=== PATIENT | female | born 2000 | race Asian ===

== ENCOUNTER 2024-04-30 17:28 | Observation (INO) ==
[2024-04-30 18:25] LABS: Appearance Urine Cloudy (Clear); Bacteria Urine Automated None Seen (None Seen); Bilirubin Urine Negative (Negative); Blood Urine 2+ (Negative); Color Urine Yellow; Epithelial Cell Urine Auto 0-2 /hpf (0-2); Glucose Urine UA 3+ (Negative); Ketones Urine 3+ (Negative); Leukocyte Esterase Urine 2+ (Negative); Nitrite Urine Negative (Negative); Protein Urine 1+ (Negative); Specific Gravity Urine 1.017 (1.000-1.030); Urobilinogen Urine Negative (Negative); WBC Urine Automated >50 /hpf (0-5)
[2024-04-30 18:27] LABS: Basophils # (auto) 0.04 K/uL (0.00-0.20); Basophils % (auto) 0.3 %; Eosinophils # (auto) 0.01 K/uL (0.00-0.50); Eosinophils % (auto) 0.1 %; Hematocrit (blood only) 42.7 % (37.0-47.0); Hemoglobin 14.4 g/dl (12.0-16.0); Immature Granulocytes # (auto) 0.08 K/uL (0.01-0.20); Immature Granulocytes % (auto) 0.5 %; Lymphocytes # (auto) 1.62 K/uL (1.20-3.40); Lymphocytes % (auto) 10.2 %; Mean Corpuscular Hgb Conc 33.7 g/dL (32.0-36.0); Mean Corpuscular Volume 86.1 fL (80.0-100.0); Mean Platelet Volume 9.5 fL (9.4-12.4); Monocytes # (auto) 0.73 K/uL (0.11-0.59); Monocytes % (auto) 4.6 %; Neutrophils # (auto) 13.44 K/uL (1.40-6.50); Neutrophils % (auto) 84.3 %; Platelet Count 232 K/uL (130-400); RDW Coefficient of Variation 12.3 % (11.5-14.5); RDW Standard Deviation 38.5 fL (36.4-46.3); Red Blood Count 4.96 M/uL (4.20-5.40); White Blood Count 15.92 K/ul (4.8-10.8)
[2024-04-30 18:43] LABS: Albumin Globulin Ratio 1.4 (0.9-2); Albumin Level 4.4 gm/dl (3.4-5.0); BUN Creatinine Ratio 13.5 (10-20); Bilirubin,Total 1.1 mg/dl (0.2-1.0); Calcium 9.4 mg/dl (8.6-10.3); Creatinine Clr Calc Pharmacy 134.8 ml/min; Est GFR (African American) 133.3 ml/min; Globulin 3.2 gm/dl (2.5-4.0); Potassium 3.7 mmol/L (3.5-5.1); Total Protein 7.6 gm/dl (6.0-8.3)
[2024-04-30] MEDS: SODIUM CHLORIDE 0.9% 1,000 ML IV SCH ×2 (18:51→23:15)
--- NOTE | 2024-04-30 18:59 | Emergency Department Note ---
Impression & Plan Pyelonephritis, Diabetes mellitus, new onset, Urinary tract infection, Hyperglycemia ED Provider Note NAME: RAINA WOODSON AGE: 23 SEX: F : 2000 ARRIVES VIA: Walk-In INFORMANT: Patient ED PROVIDER(S): Vinh Warner DO CHIEF COMPLAINT: Elevated blood sugar HPI: Patient is a 21-year-old female who presents to the ER with symptoms that started about 3 to 4 days ago. She had dysuria, urgency, and frequency. It has improved but still has the symptoms. She also has left lower quadrant pain radiating to the back. She had her blood sugar checked at the office and was elevated and consequently she was referred over. She denies any headache or change in vision. No chest pain or shortness of breath. No nausea, vomiting, or diarrhea. No other exacerbating or remitting factors. ADDITIONAL HISTORY OBTAINED: Per HPI Chronic Medical/Social Conditions Affecting Care: Per HPI PAST MEDICAL HISTORY:See Below PAST SURGICAL HISTORY:See Below FAMILY HISTORY:See Below SOCIAL HISTORY:See Below HOME MEDICATIONS:See Below ALLERGIES:See Below VITALS:See Below PHYSICAL EXAMINATION: GENERAL: Sitting up in bed, alert, well appearing, well nourished, no distress, non-toxic EYE EXAM: normal conjunctiva. PERRL and EOM's grossly intact. OROPHARYNX: no exudate, no erythema, lips, buccal mucosa, and tongue normal and mucous membranes are moist NECK: supple, no nuchal rigidity, no adenopathy, non-tender LUNGS: Clear to auscultation. Normal chest wall mechanics HEART: no murmurs, S1 normal and S2 normal ABDOMEN: abdomen soft, non-tender, normo-active bowel sounds, no masses, no rebound or guarding. BACK: Back is symmetrical on inspection and there is no deformity, no midline tenderness, no CVA tenderness. SKIN: no rashes and no bruising UPPER EXTREMITIES: upper extremities are grossly normal. LOWER EXTREMITIES: No pitting edema. NEURO EXAM: Normal sensorium, cranial nerves II-XII grossly intact, normal speech, no gross weakness of arms, no gross weakness of legs. MEDICAL DECISION MAKING: Patient is a 23-year-old female who presents the ER for the above-stated complaint. IV was established blood work was obtained. External records were reviewed from [facility] which showed an elevated blood sugar in the 200s. Labs show leukocytosis of 15,000. No significant anemia. BMP with a glucose of 280. LFTs bilirubin is unremarkable. UA does suggest a UTI. Patient was given 2 L IV fluids as well as IV Rocephin. was negative. A1c was elevated at 9. Blood sugars trend down to the low 200s. Discussed case with the hospitalist for further evaluation management treatment due to the new onset diabetes in combination with UTI. CT abdomen pelvis showed no acute pathology. Consults/Care Managements Discussions: Per [facility] Triage Nursing notes reviewed. Limited review of prior medical records performed Vital Signs: reviewed and remarkable for no significant abnormalities Differential diagnosis: Differential diagnoses includes but is not limited to gastritis, peptic ulcer disease, GERD, gallbladder disease, pancreatitis, small bowel obstruction, appendicitis, diverticulitis, hernia, urinary tract infection, torsion, /ectopic (if female), perforation, trauma, infectious. ER treatment provided: See below Diagnostics interpreted by me include EKG and cardiac monitoring as listed below: -Cardiac Monitoring: An order was placed for continuous cardiac monitoring. The monitor shows a rate of 90 with sinus rhythm. -ECG: none -Laboratory studies:Interpreted by me as stated above in MDM and shown below. Imaging studies: Xrays: As interpreted by me:none CTs show: CT abdomen pelvis per my preliminary interpretation showed no obvious bowel obstruction CT abdomen pelvis shows pyelonephritis Procedures:none Critical Care: None Past Med/Surg History Problem List (Updated 04/30/24 @ 21:42 by Vinh Warner DO) Pyelonephritis (Acute) Diabetes mellitus, new onset (Acute) Hyperglycemia (Acute) Urinary tract infection (Acute) Diabetes mellitus Social History Smoking Status: Current every day smoker Tobacco Type: E-cigarettes / Vaping Preferred Language: Hungarian Feels Safe at Home: Yes Allergies Allergies Allergy/AdvReac Type Severity Reaction Status Date / Time No Known Allergies Allergy Unverified 04/30/24 20:22 Home Meds Home Medications Medication Instructions Recorded Confirmed ibuprofen 200 mg tablet (Advil) 200 mg PO BID PRN Pain 04/30/24 04/30/24 levonorgestrel 1.5 mg tablet (Plan 0 mg PO DIRECTED PRN .The day 04/30/24 04/30/24 B One-Step) after Results & Data (ED) Vital Signs Vital Signs - 24 hr 04/30/24 17:40 04/30/24 19:29 04/30/24 21:00 Temperature 36.6 C Temperature Source Temporal Artery Scan Pulse Rate 94 H Pulse Rate [Finger] 92 H 89 Pulse Rhythm [Finger] Regular Regular Respiratory Rate 16 18 22 Respiratory Effort / Characteristics Non-Labored Spontaneous Non-Labored Spontaneous Non-Labored Spontaneous Respiratory Depth Normal Normal Normal Respiratory Pattern Regular Regular Blood Pressure 101/71 Blood Pressure [Right Arm] 114/67 121/74 Blood Pressure Mean 81 Blood Pressure Mean [Right Arm] 82 89 Pulse Oximetry 97 100 100 Oxygen Delivery Method Room Air Room Air Room Air Sepsis Recent Fever Within 48 Hours No Sepsis New/Unexplained Change in Mental Status No Sepsis Action Taken by Nursing No Action Required Laboratory Data 04/30/24 18:05 04/30/24 18:05 Lab Results 04/30/24 04/30/24 04/30/24 Range/Units 18:00 18:04 18:05 WBC 15.92 H (4.8-10.8) K/ul RBC 4.96 (4.20-5.40) M/uL Hgb 14.4 (12.0-16.0) g/dl Hct 42.7 (37.0-47.0) % MCV 86.1 (80.0-100.0) fL MCH 29.0 (25.0-34.0) pg MCHC 33.7 (32.0-36.0) g/dL RDW Std Deviation 38.5 (36.4-46.3) fL RDW Coeff of Santos 12.3 (11.5-14.5) % Plt Count 232 (130-400) K/uL MPV 9.5 (9.4-12.4) fL Immature Gran % (Auto) 0.5 % Neut % (Auto) 84.3 % Lymph % (Auto) 10.2 % Grayson % (Auto) 4.6 % Eos % (Auto) 0.1 % Baso % (Auto) 0.3 % Neut # (Auto) 13.44 H (1.40-6.50) K/uL Lymph # (Auto) 1.62 (1.20-3.40) K/uL Grayson # (Auto) 0.73 H (0.11-0.59) K/uL Eos # (Auto) 0.01 (0.00-0.50) K/uL Baso # (Auto) 0.04 (0.00-0.20) K/uL Immature Gran # (Auto) 0.08 (0.01-0.20) K/uL VBG pH (7.36-7.41) VBG pCO2 (38-50) mmHg VBG pO2 mmHg VBG HCO3 mmol/L VBG O2 Saturation % VBG Base Excess mEq/L Sodium 132 L (136-145) mmol/L Potassium 3.7 (3.5-5.1) mmol/L Chloride 97 L (98-107) mmol/L Carbon Dioxide 27 (21-32) mmol/L Anion Gap 8 (3-11) BUN 10 (6-23) mg/dl Creatinine 0.74 (0.6-1.2) mg/dl Est Cr Clr Drug Dosing 134.8 ml/min Est GFR ( Amer) 133.3 ml/min Est GFR (Non-Af Amer) 115.0 ml/min BUN/Creatinine Ratio 13.5 (10-20) Glucose 282 H (70-99(Fasting)) mg/dl POC Glucose (70-99) mg/dl Estimat Average Glucose 229 mg/dl Hemoglobin A1c 9.6 H (4.5-5.6) % Calcium 9.4 (8.6-10.3) mg/dl Total Bilirubin 1.1 H (0.2-1.0) mg/dl AST 14 (13-39) U/L ALT 11 (7-52) U/L Alkaline Phosphatase 84 (34-104) U/L Total Protein 7.6 (6.0-8.3) gm/dl Albumin 4.4 (3.4-5.0) gm/dl Globulin 3.2 (2.5-4.0) gm/dl Albumin/Globulin Ratio 1.4 (0.9-2) Urine Color Yellow Urine Appearance Cloudy A (Clear) Urine pH 6.0 (4.5-7.5) Ur Specific [place] 1.017 (1.000-1.030) Urine Protein 1+ H (Negative) Urine Glucose (UA) 3+ H (Negative) Urine Ketones 3+ H (Negative) Urine Blood 2+ H (Negative) Urine Nitrite Negative (Negative) Urine Bilirubin Negative (Negative) Urine Urobilinogen Negative (Negative) Ur Leukocyte Esterase 2+ H (Negative) Urine WBC (Auto) >50 H (0-5) /hpf Urine RBC (Auto) 6-10 H (0-2) /hpf U Hyaline Cast (Auto) 3-5 H (0-2) /lpf U Epithel Cells (Auto) 0-2 (0-2) /hpf Urine Bacteria (Auto) None Seen (None Seen) POC Ur Test NEG (NEG) 04/30/24 04/30/24 Range/Units 18:49 19:32 WBC (4.8-10.8) K/ul RBC (4.20-5.40) M/uL Hgb (12.0-16.0) g/dl Hct (37.0-47.0) % MCV (80.0-100.0) fL MCH (25.0-34.0) pg MCHC (32.0-36.0) g/dL RDW Std Deviation (36.4-46.3) fL RDW Coeff of Santos (11.5-14.5) % Plt Count (130-400) K/uL MPV (9.4-12.4) fL Immature Gran % (Auto) % Neut % (Auto) % Lymph % (Auto) % Grayson % (Auto) % Eos % (Auto) % Baso % (Auto) % Neut # (Auto) (1.40-6.50) K/uL Lymph # (Auto) (1.20-3.40) K/uL Grayson # (Auto) (0.11-0.59) K/uL Eos # (Auto) (0.00-0.50) K/uL Baso # (Auto) (0.00-0.20) K/uL Immature Gran # (Auto) (0.01-0.20) K/uL VBG pH 7.38 (7.36-7.41) VBG pCO2 46 (38-50) mmHg VBG pO2 25 mmHg VBG HCO3 27 mmol/L VBG O2 Saturation < 60.0 % VBG Base Excess 1.5 mEq/L Sodium (136-145) mmol/L Potassium (3.5-5.1) mmol/L Chloride (98-107) mmol/L Carbon Dioxide (21-32) mmol/L Anion Gap (3-11) BUN (6-23) mg/dl Creatinine (0.6-1.2) mg/dl Est Cr Clr Drug Dosing ml/min Est GFR ( Amer) ml/min Est GFR (Non-Af Amer) ml/min BUN/Creatinine Ratio (10-20) Glucose (70-99(Fasting)) mg/dl POC Glucose 229 H (70-99) mg/dl Estimat Average Glucose mg/dl Hemoglobin A1c (4.5-5.6) % Calcium (8.6-10.3) mg/dl Total Bilirubin (0.2-1.0) mg/dl AST (13-39) U/L ALT (7-52) U/L Alkaline Phosphatase (34-104) U/L Total Protein (6.0-8.3) gm/dl Albumin (3.4-5.0) gm/dl Globulin (2.5-4.0) gm/dl Albumin/Globulin Ratio (0.9-2) Urine Color Urine Appearance (Clear) Urine pH (4.5-7.5) Ur Specific [place] (1.000-1.030) Urine Protein (Negative) Urine Glucose (UA) (Negative) Urine Ketones (Negative) Urine Blood (Negative) Urine Nitrite (Negative) Urine Bilirubin (Negative) Urine Urobilinogen (Negative) Ur Leukocyte Esterase (Negative) Urine WBC (Auto) (0-5) /hpf Urine RBC (Auto) (0-2) /hpf U Hyaline Cast (Auto) (0-2) /lpf U Epithel Cells (Auto) (0-2) /hpf Urine Bacteria (Auto) (None Seen) POC Ur Test (NEG) Administered Medications Discontinued Medications Sodium Chloride (Nss) 1,000 mls @ 999 mls/hr IV .Q1H1M DEYA Stop: 04/30/24 20:45 Last Infusion: 04/30/24 21:10 Dose: Infused Documented By: Admin: 04/30/24 20:04 Dose: 999 mls/hr Documented By: Infusion: 04/30/24 19:52 Dose: Infused Documented By: Admin: 04/30/24 18:51 Dose: 999 mls/hr Documented By: KARI Ceftriaxone Sodium (Rocephin) 2,000 mg in 50 mls @ 100 mls/hr IV NOW STA Stop: 04/30/24 20:11 Last Infusion: 04/30/24 21:09 Dose: Infused Documented By: Admin: 04/30/24 20:04 Dose: 100 mls/hr Documented By: KARI Ioversol (Optiray 320 100ml) 92 ml IV ONCE ONE Stop: 04/30/24 19:08 Last Admin: 04/30/24 19:08 Dose: 92 ml Documented By: MARLY Imaging Data Radiologist's Impression: Abdomen/Pelvis CT 04/30/24 18:43 Exam(s): CT ABDOMEN + PELVIS With Contrast IV Amt: 92ml EXAM: CT Abdomen and Pelvis With Intravenous Contrast CLINICAL HISTORY: Reason for exam: llq abd pain going to back. TECHNIQUE: Axial computed tomography images of the abdomen and pelvis with intravenous contrast. CTDI is 17.08 mGy and DLP is 969.21 mGy-cm. Automated exposure control was utilized for the study. A dose lowering technique was utilized adhering to the principles of ALARA. CONTRAST: Patient received 92ml of IV contrast COMPARISON: No relevant prior studies available. FINDINGS: Lung bases: Unremarkable. No mass. No consolidation. Pleural space: Trace bilateral pleural effusions measuring less than 1 cm layering posteriorly. ABDOMEN: Liver: The liver is enlarged measuring 20 cm craniocaudad. No focal liver lesion is seen. Gallbladder and bile ducts: Unremarkable. No calcified stones. No ductal dilation. Pancreas: Unremarkable. No mass. No ductal dilation. Spleen: Unremarkable. No splenomegaly. Adrenals: Unremarkable. No mass. Kidneys and ureters: There is slightly decreased enhancement of approximately one third of the left kidney and slight enhancement of the wall of the proximal ureter consistent with ascending urinary tract infection and pyelonephritis. No hydronephrosis. Stomach and bowel: Unremarkable. No obstruction. No mucosal thickening. PELVIS: Appendix: The appendix is normal. Bowel loops are nondilated. No acute inflammatory changes are seen involving the bowel. Bladder: There is circumferential urinary bladder wall thickening indicate cystitis. Reproductive: Unremarkable as visualized. ABDOMEN and PELVIS: Intraperitoneal space: Unremarkable. No free air. No significant fluid collection. Bones/joints: No acute fracture. No dislocation. Soft tissues: Unremarkable. Vasculature: Unremarkable. No abdominal aortic aneurysm. Lymph nodes: Unremarkable. No enlarged lymph nodes. IMPRESSION: 1. There is circumferential urinary bladder wall thickening indicate cystitis. 2. There is slightly decreased enhancement of approximately one third of the left kidney with perinephric edema and slight enhancement of the wall of the proximal ureter consistent with ascending urinary tract infection and pyelonephritis. 3. The appendix is normal. Bowel loops are nondilated. No acute inflammatory changes are seen involving the bowel. Electronically signed by: Cortes Loza MD 04/30/24 21:20 PM Discharge Plan Visit Data Chief Complaint: Urinary Symptoms ED Provider: Vinh Warner Discharge Problem: Pyelonephritis, Diabetes mellitus, new onset, Urinary tract infection, Hyperglycemia Forms Stand Alone Forms: [place] Prescriptions Prescriptions: No Action ibuprofen [Advil] 200 mg Tablet 200 mg PO BID PRN (Reason: Pain) levonorgestrel [Plan B One-Step] 1.5 mg Tablet 0 mg PO DIRECTED PRN (Reason: .The day after) Referrals Referrals: PCP,NO [Physician] - Discharge Problem: Urinary tract infection Qualifiers: Urinary tract infection type: acute cystitis Hematuria presence: with hematuria Qualified Code(s): N30.01 - Acute cystitis with hematuria
[2024-04-30 19:00] LABS: Base Excess VBG 1.5 mEq/L; HCO3 VBG 27 mmol/L; Oxygen Saturation VBG < 60.0 %; PCO2 VBG 46 mmHg (38-50); PO2 VBG 25 mmHg; pH VBG 7.38 (7.36-7.41)
[2024-04-30] MEDS: OPTIRAY 320 100ml IV ONE (19:08)
[2024-04-30 19:36] LABS: Estimated Average Glucose 229 mg/dl; Hemoglobin A1C 9.6 % (4.5-5.6)
[2024-04-30] MEDS: cefTRIAXone SODIUM 2,000 MG/50 ML BAG IV STA (20:04)
--- NOTE | 2024-04-30 20:33 | History & Physical Report ---
Date of Service April 30, 2024 Assessment & Plan (1) Hyperglycemia: (2) Pyelonephritis: (3) Cystitis: (4) Diabetes mellitus, new onset: Plan Is a 23-year-old female with no significant past medical history who was sent to ED from [facility] clinic due to finding of hyperglycemia during evaluation of left lower quadrant pain and urinary symptoms. Hyperglycemia //New diagnosis of Diabetes Mellitus -Patient with no personal history of diabetes but has family history of diabetes type 2 in mom and maternal aunt -Fasting blood sugar at home has ranged between 90 and 120, but patient has not measured blood sugar and other times of the day -Blood sugar on admission labs showing level of 282, and hemoglobin A1c of 9.6 -Consider possible that patient had an undiagnosed diabetes mellitus that was impacted/made worse by current UTI -S/p 2 L bolus of normal saline. Will continue maintenance IVF after this for fluid resuscitation -Will begin insulin regimen as well as SSI -harm reduction worker consulted -Blood sugar checks every 4 hours and then before meals -Will admit to telemetry for observation -Monitor a.m. CMP and CBC -Patient without outpatient PCP. Encouraged to establish care with a PCP for continued monitoring of blood sugar and regular health maintenance. (L) Pyelonephritis & Cystitis -Patient with symptoms of dysuria, shivering, and fever sensation since Saturday of this week -UA with findings suggestive of UTI -Urine culture pending -Blood cultures pending -CTAP showing findings consistent with left-sided pyelonephritis and cystitis -Will continue ceftriaxone and may consider switching to appropriate p.o. al ternative after discharge to complete a total of 10 days of antibiotic therapy Hyponatremia -Metabolic panel showing hyponatremia of 132 that corrects to 135 accounting for hyperglycemia -Monitor a.m. CMP Dispo: Admit to PCU/telemetry for observation Fluids: NSS @ 125 ml/hr Diet: DM2 Pain Control: none VTE ppx: patient able to ambulate Code Status: Full History of Present Illness Chief Complaint: Hyperglycemia Primary Care Provider: NO PCP 23-year-old female patient with no significant past medical history who was sent to ED from [facility] clinic due to finding of hyperglycemia with blood sugar above 250. Prior to this, patient had been experiencing left lower quadrant pain with some radiation to the back since Saturday of this week, as well as dysuria, shakes, and feverish sensation. Initially she thought this was related to a UTI, and associated her abdominal and back pain due to this. However, since her pain was getting progressively worse up until yesterday, she went to [facility] clinic to be evaluated where they found UTI and hyperglycemia as mentioned above. Patient has no personal history of diabetes, but does have family history with her mom and maternal aunt having type 2 diabetes. Her mom had given her a glucometer to check her blood sugar due to concern for also developing diabetes as this has run in the family, and patient has only measured her blood sugar in the morning with usual range between 90 and 120. No other blood sugar checks during the day. Patient endorses having a pretty active lifestyle going to the gym and exercising, as well as maintaining an adequate diet. ED Course: Patient giving 2 L bolus of normal saline, and was started on ceftriaxone for management of UTI Labs/Imaging: CBC with leukocytosis of 15.9 with neutrophilic predominance, hemoglobin 14.4 and platelets adequate at 232. Blood gas without acidosis (pH of 7.38) and pCO2 46. Metabolic panel showing hyponatremia of 132 and no other electrolyte abnormality, renal markers within reference range, blood glucose of 282. Hemoglobin A1c of 9.6. UA showing proteinuria of +1, glucosuria of 3+, urine ketones of 3+, leukocyte esterase without nitrites and no bacteria. CTAP showing findings consistent with left sided pyelonephritis and cystitis. Medical History: No past medical history Medications: No current medications Surgical History: No previous surgeries Family history: Mother and maternal aunt with history of type 2 diabetes, paternal history unremarkable Allergies: No known drug allergies Social History: Non-smoker, occasional alcohol use, no substance use Code Status: Full Allergies Allergy/AdvReac Type Severity Reaction Status Date / Time No Known Allergies Allergy Unverified 04/30/24 20:22 Home Medications Medication Instructions Recorded Confirmed Type ibuprofen 200 mg tablet (Advil) 200 mg PO BID PRN Pain 04/30/24 04/30/24 History levonorgestrel 1.5 mg tablet (Plan 0 mg PO DIRECTED PRN .The day 04/30/24 04/30/24 History B One-Step) after Past Med/Surg History Problem List (Updated 04/30/24 @ 22:59 by Keisha Eldridge MD) Cystitis Pyelonephritis (Acute) Diabetes mellitus, new onset (Acute) Hyperglycemia (Acute) Urinary tract infection (Acute) Diabetes mellitus Social History Smoking Status: Current every day smoker Tobacco Type: E-cigarettes / Vaping Hx Alcohol Use: Yes Alcohol type: hard liquor Hx Substance Use: No Preferred Language: Uzbek Communication Ability: Effective Distributor Sales Manager Required: No Beliefs That Will Affect Care: None Current Living Situation: Alone Other Information That Helps Us Care for You: No Feels Safe at Home: Yes Safety Concerns: Feels Safe At This Time Assistive Devices: Contacts Review of Systems Review of Systems: As per HPI Physical Exam Physical Exam: GENERAL: AAOx3, calm, afebrile, NAD HEAD: NC, AT EYES: EOM intact, ROBERTA, non-injected conjunctiva THROAT: Normal to visual inspection CHEST: Symmetric rise with respirations CARDIO: Regular rate and rhythm, no rubs murmurs or gallops appreciated PULMONARY: Clear to auscultation bilaterally, normal respiratory effort, no respiratory distress GI: Soft, nondistended, tenderness on palpation of left upper and lower quadrant as well as suprapubic region, no tenderness elicited on palpation of other quadrants : No Schmitt EXTREMITIES: No swelling or calf tenderness in bilateral lower extremities SKIN: No rashes or lesions appreciated Results & Data Results & Data Vital Signs (Past 12 Hours) Vital Signs Temp Pulse Pulse Resp BP BP Pulse Ox 04/30/24 19:29 92 H 18 114/67 100 04/30/24 17:40 36.6 C 94 H 16 101/71 97 O2 Del Method 04/30/24 19:29 Room Air 04/30/24 17:40 Room Air Supervising Physician Co-Signing Physician Notes Attending addendum: I have physically seen this patient, have supervised the medical residents activities, and agree with the H&P unless as otherwise noted. Assessment and Plan: New onset diabetes mellitus with hyperglycemia- Patient had been sent to the emergency department due to elevated blood glucose in the outpatient setting Glucose 282 on admission, with hemoglobin A1c 9.6 No previous personal history of diabetes Status post 2 L normal saline bolus in the ED Continue IV fluids NSS at 125 MLS per hour Placed on Accu-Cheks with SSI overnight Consult diabetic education Patient will need to establish with outpatient PCP She has been checking morning glucoses at home due to family history of diabetes type 2 Check CBC with differential and renal function panel in the a.m. Cystitis/ureteritis/left-sided pyelonephritis- Follow urine culture and sensitivity Follow blood culture and sensitivity Empiric ceftriaxone Resident Activity Tracking Resident Involvement: Resident Care Provided Care Provided: Adult [facility]
--- NOTE | 2024-04-30 21:21 | CT Scan Report ---
Exam(s): CT ABDOMEN + PELVIS With Contrast IV Amt: 92ml EXAM: CT Abdomen and Pelvis With Intravenous Contrast CLINICAL HISTORY: Reason for exam: llq abd pain going to back. TECHNIQUE: Axial computed tomography images of the abdomen and pelvis with intravenous contrast. CTDI is 17.08 mGy and DLP is 969.21 mGy-cm. Automated exposure control was utilized for the study. A dose lowering technique was utilized adhering to the principles of ALARA. CONTRAST: Patient received 92ml of IV contrast COMPARISON: No relevant prior studies available. FINDINGS: Lung bases: Unremarkable. No mass. No consolidation. Pleural space: Trace bilateral pleural effusions measuring less than 1 cm layering posteriorly. ABDOMEN: Liver: The liver is enlarged measuring 20 cm craniocaudad. No focal liver lesion is seen. Gallbladder and bile ducts: Unremarkable. No calcified stones. No ductal dilation. Pancreas: Unremarkable. No mass. No ductal dilation. Spleen: Unremarkable. No splenomegaly. Adrenals: Unremarkable. No mass. Kidneys and ureters: There is slightly decreased enhancement of approximately one third of the left kidney and slight enhancement of the wall of the proximal ureter consistent with ascending urinary tract infection and pyelonephritis. No hydronephrosis. Stomach and bowel: Unremarkable. No obstruction. No mucosal thickening. PELVIS: Appendix: The appendix is normal. Bowel loops are nondilated. No acute inflammatory changes are seen involving the bowel. Bladder: There is circumferential urinary bladder wall thickening indicate cystitis. Reproductive: Unremarkable as visualized. ABDOMEN and PELVIS: Intraperitoneal space: Unremarkable. No free air. No significant fluid collection. Bones/joints: No acute fracture. No dislocation. Soft tissues: Unremarkable. Vasculature: Unremarkable. No abdominal aortic aneurysm. Lymph nodes: Unremarkable. No enlarged lymph nodes. IMPRESSION: 1. There is circumferential urinary bladder wall thickening indicate cystitis. 2. There is slightly decreased enhancement of approximately one third of the left kidney with perinephric edema and slight enhancement of the wall of the proximal ureter consistent with ascending urinary tract infection and pyelonephritis. 3. The appendix is normal. Bowel loops are nondilated. No acute inflammatory changes are seen involving the bowel. Electronically signed by: Cortes Loza MD 04/30/24 21:20 PM
[2024-04-30] MEDS ORDERED: CARBOHYDRATES FOR HYPOGLYCEMIA PO PRN (22:18)
[2024-04-30] MEDS ORDERED: GLUCAGON FOR INJ 1 MG VIAL SQ PRN (22:18)
[2024-04-30] MEDS ORDERED: DEXTROSE 50% 50 ML SYRINGE IV PRN (22:18)
[2024-04-30] MEDS ORDERED: GLUCOSE 10 TAB/TUBE PO PRN (22:18)
[2024-04-30] MEDS ORDERED: GLUCOSE 40% GEL 15 GM TUBE PO PRN (22:18)
[2024-04-30] MEDS: LANTUS PER UNIT CHARGE SQ SCH (23:05)
[2024-04-30] MEDS: INSULIN ASPART PER UNIT CHARGE SC SCH (23:05)
[2024-04-30] MEDS: ONDANSETRON INJ 2 MG/ML 2 ML VIAL IV ONE (23:17)
[2024-05-01] MEDS: FAMOTIDINE 20 MG TAB PO ONE
--- NOTE | 2024-05-01 02:29 | Billing Data ---
Date of Service May 01, 2024 Coding Level of Care Code 97994 INT INP/OBS CARE
[2024-05-01 07:10] LABS: Basophils # (auto) 0.03 K/uL (0.00-0.20); Basophils % (auto) 0.2 %; Eosinophils # (auto) 0.02 K/uL (0.00-0.50); Eosinophils % (auto) 0.1 %; Hematocrit (blood only) 33.5 % (37.0-47.0); Hemoglobin 11.3 g/dl (12.0-16.0); Immature Granulocytes # (auto) 0.08 K/uL (0.01-0.20); Immature Granulocytes % (auto) 0.5 %; Lymphocytes # (auto) 1.22 K/uL (1.20-3.40); Lymphocytes % (auto) 7.8 %; Mean Corpuscular Hemoglobin 28.9 pg (25.0-34.0); Mean Corpuscular Hgb Conc 33.7 g/dL (32.0-36.0); Mean Corpuscular Volume 85.7 fL (80.0-100.0); Mean Platelet Volume 9.9 fL (9.4-12.4); Monocytes # (auto) 0.91 K/uL (0.11-0.59); Monocytes % (auto) 5.8 %; Neutrophils # (auto) 13.44 K/uL (1.40-6.50); Neutrophils % (auto) 85.6 %; Platelet Count 181 K/uL (130-400); RDW Coefficient of Variation 12.4 % (11.5-14.5); RDW Standard Deviation 38.6 fL (36.4-46.3); Red Blood Count 3.91 M/uL (4.20-5.40)
[2024-05-01 07:35] LABS: Albumin Globulin Ratio 1.2 (0.9-2); Albumin Level 3.2 gm/dl (3.4-5.0); BUN Creatinine Ratio 11.5 (10-20); Bilirubin,Total 0.8 mg/dl (0.2-1.0); Calcium 8.2 mg/dl (8.6-10.3); Creatinine Clr Calc Pharmacy 166.8 ml/min; Est GFR (African American) 149.1 ml/min; Est GFR (Non-African American) 128.7 ml/min; Globulin 2.6 gm/dl (2.5-4.0); Potassium 3.7 mmol/L (3.5-5.1); Total Protein 5.8 gm/dl (6.0-8.3)
[2024-05-01] MEDS: PANTOprazole 40 MG in SYRINGE 0 ML IV SCH (08:41)
[2024-05-01] MEDS: FAMOTIDINE 20 MG TAB PO SCH (08:41)
--- NOTE | 2024-05-01 11:01 | Electrocardiogram Report ---
Test Reason : Blood Pressure : / mmHG Vent. Rate : 103 BPM Atrial Rate : 103 BPM P-R Int : 136 ms QRS Dur : 130 ms QT Int : 384 ms P-R-T Axes : 055 093 030 degrees QTc Int : 503 ms Sinus tachycardia Right bundle branch block Abnormal ECG No previous ECGs available Confirmed by Abimael Reagan ([id number]) on 05/01/2024 11:01:07 AM Referred By: REFERRED SELF Confirmed By:Abimael Reagan
[2024-05-01] MEDS: ACETAMINOPHEN 325 MG TAB PO PRN (14:53)
--- NOTE | 2024-05-01 15:06 | Hospitalist Progress Note ---
Date of Service May 01, 2024 Assessment & Plan (1) Pyelonephritis: Plan: A 23-year-old female with no significant past medical history who was sent to ED from [facility] clinic due to finding of hyperglycemia during evaluation of left lower quadrant pain and urinary symptoms. Patient with symptoms of dysuria, shivering, and fever sensation since Saturday of this week -UA with findings suggestive of UTI -Urine culture: GN bacilli -Blood cultures pending -CTAP showing findings consistent with left-sided pyelonephritis and cystitis -continue ceftriaxone (first day 04/30), awaiting sensitivities. will need 10-14 day course (2) Diabetes mellitus, new onset: Plan: -Patient with no personal history of diabetes but has family history of diabetes type 2 in mom and maternal aunt. -Fasting blood sugar 90 - 120, but patient has not measured blood sugar and other times of the day -Hemoglobin A1c of 9.6 -S/p 2 L bolus of normal saline. -Will begin insulin regimen as well as SSI -simulation educator consulted -Patient without outpatient PCP. Is a [employer] student and can get established with as PCP Check AM TSH (3) Hyponatremia: Plan: -Metabolic panel showing hyponatremia of 132 that corrects to 135 accounting for hyperglycemia - stable AM AM BMP Plan Dispo: continued inpatient stay, awaiting cultures VTE ppx: low risk Admission and Anticipated Discharge Date Admission Date: April 30, 2024 Supervising Physician Co-Signing Physician Notes Attending Attestation - Chart reviewed, care plan d/w RANJITH Brooks. I agree w/ the berry components of her documentation. Matt Patiño MD Subjective Patient seen this morning, having some lower back pain. Tolerating appetite no fevers or chills Has been checking her sugars at home and usually 90-110s. did have urinary symptoms about 3 days ago Tele - SR 90-100s Review of Systems Review of Systems: All systems reviewed & are unremarkable except as noted in Subjective Physical Exam Physical Exam: General: NAD, VS as above Resp: normal respiratory effort, lungs clear to auscultation CV: RRR, no murmur, Abd:soft, LLQ tenderness Extremities: Moves all extremities, no edema Neuro: A&O x3, Results & Data Results & Data Vital Signs (Past 12 Hours) Vital Signs Temp Pulse Pulse Resp BP Pulse Ox O2 Del Method 05/01/24 10:48 36.5 C 99 H 18 106/71 96 Room Air 05/01/24 07:41 37.2 C 93 H 18 95/57 L 97 Room Air 05/01/24 07:15 99 H 05/01/24 03:38 37.1 C 97 H 16 95/59 L 97 Room Air Laboratory Results CBC and chemistry reviewed PG Care Time/CCT Total # of Minutes Spent Total Time Spent with Patient: Total time spent is greater than 50% in coordination of care (as documented) at patient's floor/unit and/or counseling patient: Coding Level of Care Code 15018 SUB INP/OBS CARE 3/50MIN Diagnoses Pyelonephritis N12 Diabetes mellitus, new onset E11.9 Hyponatremia E87.1
[2024-05-01] MEDS ORDERED: cefTRIAXone SODIUM 1,000 MG/50 ML BAG IV SCH (20:30)
[2024-05-01] MEDS: cefTRIAXone SODIUM 2,000 MG/50 ML BAG IV SCH (20:37)
[2024-05-02 08:33] LABS: Basophils # (auto) 0.01 K/uL (0.00-0.20); Basophils % (auto) 0.1 %; Eosinophils # (auto) 0.03 K/uL (0.00-0.50); Eosinophils % (auto) 0.3 %; Hematocrit (blood only) 34.5 % (37.0-47.0); Hemoglobin 11.6 g/dl (12.0-16.0); Immature Granulocytes # (auto) 0.04 K/uL (0.01-0.20); Immature Granulocytes % (auto) 0.4 %; Lymphocytes # (auto) 1.07 K/uL (1.20-3.40); Lymphocytes % (auto) 10.9 %; Mean Corpuscular Hemoglobin 28.9 pg (25.0-34.0); Mean Corpuscular Hgb Conc 33.6 g/dL (32.0-36.0); Mean Corpuscular Volume 85.8 fL (80.0-100.0); Mean Platelet Volume 9.7 fL (9.4-12.4); Monocytes # (auto) 0.67 K/uL (0.11-0.59); Monocytes % (auto) 6.8 %; Neutrophils # (auto) 8.01 K/uL (1.40-6.50); Neutrophils % (auto) 81.5 %; Platelet Count 202 K/uL (130-400); RDW Coefficient of Variation 11.9 % (11.5-14.5); RDW Standard Deviation 37.8 fL (36.4-46.3); Red Blood Count 4.02 M/uL (4.20-5.40); White Blood Count 9.83 K/ul (4.8-10.8)
[2024-05-02 08:34] LABS: Albumin Globulin Ratio 1.2 (0.9-2); Albumin Level 3.4 gm/dl (3.4-5.0); BUN Creatinine Ratio 11.1 (10-20); Bilirubin,Total 0.7 mg/dl (0.2-1.0); Calcium 8.7 mg/dl (8.6-10.3); Creatinine Clr Calc Pharmacy 162.1 ml/min; Est GFR (African American) 147.6 ml/min; Est GFR (Non-African American) 127.3 ml/min; Globulin 2.9 gm/dl (2.5-4.0); Potassium 3.9 mmol/L (3.5-5.1); Total Protein 6.3 gm/dl (6.0-8.3)
[2024-05-02 08:48] LABS: Thyroid Stimulating Hormone 1.066 uIu/ml (0.300-4.500)
--- NOTE | 2024-05-02 09:57 | Discharge Summary ---
Discharge Summary Date of Service May 02, 2024 Principal Dx & Hospital Course #1 = Principal Diagnosis (1) Pyelonephritis: A 23-year-old female with no significant past medical history who was sent to ED from [facility] clinic due to finding of hyperglycemia during evaluation of left lower quadrant pain and urinary symptoms. Patient with symptoms of dysuria, shivering, and fever sensation since Saturday of this week -UA with findings suggestive of UTI -Urine culture: quiñones-sensitive E.coli - received CTX, discharged with Cipro 500 BID x 12 days -Blood cultures: no growth at 24 hours -CTAP showing findings consistent with left-sided pyelonephritis and cystitis (2) Diabetes mellitus, new onset: -Patient with no personal history of diabetes but has family history of diabetes type 2 in mom and maternal aunt. -Fasting blood sugar 90 - 120, but patient has not measured blood sugar and other times of the day -Hemoglobin A1c of 9.6 -S/p 2 L bolus of normal saline. - TSH WNL - Discharged with Metformin 750mg ER -nurse informatics educator consulted -Patient without outpatient PCP. Is a [employer] student and can get established with [facility] as PCP (3) Hyponatremia: -Metabolic panel showing hyponatremia of 132 that corrects to 135 accounting for hyperglycemia resolved, 136 day of discharge Plan Dispo: discharge to home today, close PCP followup Notes For Next Care Provider Hospitalized with hyperglycemic and nausea - found to have pyelonephritis. Quiñones senesitive e coli - discharged on cipro. Started metformin 750 ER - suspect may need outpatient titration Medication Changes From Visit cipro 500 BID x 12 days metformin 750ER Admission HPI Per Admitting Provider 23-year-old female patient with no significant past medical history who was sent to ED from [facility] clinic due to finding of hyperglycemia with blood sugar above 250. Prior to this, patient had been experiencing left lower quadrant pain with some radiation to the back since Saturday of this week, as well as dysuria, shakes, and feverish sensation. Initially she thought this was related to a UTI, and associated her abdominal and back pain due to this. However, since her pain was getting progressively worse up until yesterday, she went to [facility] clinic to be evaluated where they found UTI and hyperglycemia as mentioned above. Patient has no personal history of diabetes, but does have family history with her mom and maternal aunt having type 2 diabetes. Her mom had given her a glucometer to check her blood sugar due to concern for also developing diabetes as this has run in the family, and patient has only measured her blood sugar in the morning with usual range between 90 and 120. No other blood sugar checks during the day. Patient endorses having a pretty active lifestyle going to the gym and exercising, as well as maintaining an adequate diet. ED Course: Patient giving 2 L bolus of normal saline, and was started on ceftriaxone for management of UTI Labs/Imaging: CBC with leukocytosis of 15.9 with neutrophilic predominance, hemoglobin 14.4 and platelets adequate at 232. Blood gas without acidosis (pH of 7.38) and pCO2 46. Metabolic panel showing hyponatremia of 132 and no other electrolyte abnormality, renal markers within reference range, blood glucose of 282. Hemoglobin A1c of 9.6. UA showing proteinuria of +1, glucosuria of 3+, urine ketones of 3+, leukocyte esterase without nitrites and no bacteria. CTAP showing findings consistent with left sided pyelonephritis and cystitis. Medical History: No past medical history Medications: No current medications Surgical History: No previous surgeries Family history: Mother and maternal aunt with history of type 2 diabetes, paternal history unremarkable Allergies: No known drug allergies Social History: Non-smoker, occasional alcohol use, no substance use Code Status: Full Discharge Exam General: NAD, VS as above Resp: normal respiratory effort, lungs clear to auscultation CV: RRR, no murmur, Abd:soft, LLQ tenderness improved Extremities: Moves all extremities, no edema Neuro: A&O x3, Updated Medication List Medication Instructions Recorded Confirmed Type ibuprofen 200 mg tablet (Advil) 200 mg PO BID PRN Pain 04/30/24 04/30/24 History levonorgestrel 1.5 mg tablet (Plan 0 mg PO DIRECTED PRN .The day 04/30/24 04/30/24 History B One-Step) after ciprofloxacin HCl 500 mg tablet 500 mg PO Q12H #24 tabs 05/02/24 Rx metformin 750 mg tablet,extended 750 mg PO DAILY #30 tabs 05/02/24 Rx release 24 hr Hospital Stay Data Consultations 04/30/24 20:13 ED Decision to Admit Stat Diagnostic Imagining Performed Abdomen/Pelvis CT 04/30/24 18:43 Exam(s): CT ABDOMEN + PELVIS With Contrast IV Amt: 92ml EXAM: CT Abdomen and Pelvis With Intravenous Contrast CLINICAL HISTORY: Reason for exam: llq abd pain going to back. TECHNIQUE: Axial computed tomography images of the abdomen and pelvis with intravenous contrast. CTDI is 17.08 mGy and DLP is 969.21 mGy-cm. Automated exposure control was utilized for the study. A dose lowering technique was utilized adhering to the principles of ALARA. CONTRAST: Patient received 92ml of IV contrast COMPARISON: No relevant prior studies available. FINDINGS: Lung bases: Unremarkable. No mass. No consolidation. Pleural space: Trace bilateral pleural effusions measuring less than 1 cm layering posteriorly. ABDOMEN: Liver: The liver is enlarged measuring 20 cm craniocaudad. No focal liver lesion is seen. Gallbladder and bile ducts: Unremarkable. No calcified stones. No ductal dilation. Pancreas: Unremarkable. No mass. No ductal dilation. Spleen: Unremarkable. No splenomegaly. Adrenals: Unremarkable. No mass. Kidneys and ureters: There is slightly decreased enhancement of approximately one third of the left kidney and slight enhancement of the wall of the proximal ureter consistent with ascending urinary tract infection and pyelonephritis. No hydronephrosis. Stomach and bowel: Unremarkable. No obstruction. No mucosal thickening. PELVIS: Appendix: The appendix is normal. Bowel loops are nondilated. No acute inflammatory changes are seen involving the bowel. Bladder: There is circumferential urinary bladder wall thickening indicate cystitis. Reproductive: Unremarkable as visualized. ABDOMEN and PELVIS: Intraperitoneal space: Unremarkable. No free air. No significant fluid collection. Bones/joints: No acute fracture. No dislocation. Soft tissues: Unremarkable. Vasculature: Unremarkable. No abdominal aortic aneurysm. Lymph nodes: Unremarkable. No enlarged lymph nodes. IMPRESSION: 1. There is circumferential urinary bladder wall thickening indicate cystitis. 2. There is slightly decreased enhancement of approximately one third of the left kidney with perinephric edema and slight enhancement of the wall of the proximal ureter consistent with ascending urinary tract infection and pyelonephritis. 3. The appendix is normal. Bowel loops are nondilated. No acute inflammatory changes are seen involving the bowel. Electronically signed by: Cortes Loza MD 04/30/24 21:20 PM Pending Results Patient Have Any Pending Studies at Discharge: Yes (diabetic antibodies ) Discharge Instructions Given to Patient (Per Discharging Provider) Ms. Liu, You were hospitalized after nausea, abdominal pain and elevated blood sugars. You were found to be diabetic and have pyleonephritis ( a UTI that has spread to your kidneys). You were treated with insulin and IV antibioitcs and made great improvement. For the diabetes - You will be started on Metfomin ER once a day. Take the first dose today, 05/02. The main side effect is diarrhea and upset stomach. If you experience these, please discuss with your PCP. Continue to check your blood sugar 1-2 times day. Your PCP may increase your medication depending on your sugars. You should also follow a carb consistent diet as discussed with the certified breastfeeding educator. For the infection - you received IV antibiotics and will be discharged with oral Ciprofloxacin 500mg twice a day. Take the first dose tonight, 05/02. You will continue this for 12 days. If you have fevers, worsening abdominal pain or new urinary symptoms please contact your PCP. You have blood cultures pending at the time of discharge, they are negative at 24 hours but take 5 days to get final results. If they turn positive you will be notified, you can also check in with your PCP or the [facility] portal. However, given your symptoms I do not expect they will be positive. You need to call [facility] to make a follow up appointment and establish you care there - we are unable to do this for you. Please call Saturday to have an appointment scheduled next week. They will be able to go over results of your pending testing with you. Medications: Your medication list has been reviewed and reconciled upon discharge to ensure accuracy and continuity of care. An updated list of all your medications is included with your hospital discharge paperwork. Please review this list closely, and make note of any changes. Take your medications as instructed; do not skip a dose of your medicines. Make sure all of your doctors know every medicine you are taking (including [id number]-[id number] medicines, vitamins, and supplements). Call your primary care provider before taking any new medicines (including over- the-counter medicines, vitamins, and supplements), because some of these may interact with your current medications, or may make your symptoms worse. Tell your primary care provider if you cannot afford your medications. Activity: You can do normal everyday activities as your body allows. Take rest breaks if you feel tired. Do not overexert. Stop activity if you have pain, shortness of breath or feel dizzy. Follow-up appointments: Make an appointment with your primary care physician within one week of discharge. A copy of this summary will be sent to them. Every time you see your primary care physician, or any other doctor, bring your medication list, and a list of questions. CONTACT YOUR PRIMARY CARE PROVIDER if you experience any of the following: Shortness of breath or difficulty breathing Fevers or chills Feeling tired with normal activity or experiencing dizziness or fainting Difficulty following your treatment plan, or difficulty taking medications CALL 911 OR GO TO THE EMERGENCY DEPARTMENT if you experience any of the following: Severe abdominal pain or nausea/vomiting Severe chest pain, or chest pain that radiates (moves) to your jaw or arm Sudden, severe shortness of breath or difficulty breathing Thank you for allowing us to participate in your care. Leann Brooks PA-C Total Time Total Time Spent Total Time Spent (In Minutes): Time spend day of discharge 35 minutes including direct patient care, medication reconciliation, documentation, review of labs and images, and coordination of care. Coding Level of Care Code 07920 INP/OBS DISCH >30 MIN Diagnoses Pyelonephritis N12 Diabetes mellitus, new onset E11.9 Hyponatremia E87.1
== END 2024-05-02 13:19 | disposition home or self-care (01) ==
LOC: ED 17:28 → 2S 17:28 → SUATTDRO 20:28 → 2S 21:47